=== PATIENT | male | born 1995 | race Caucasian/White ===

== ENCOUNTER 2021-01-03 09:35 | Inpatient (IN) | payer OTHER ==
[~2021-01-03] VITALS: Ht 177.8 cm; Wt 81.8 kg
[2021-01-03] MEDS ORDERED: CLON-598 PO (10:42)
[2021-01-03] MEDS ORDERED: VENL25TA47 PO (10:42)
[2021-01-03] MEDS ORDERED: MAGNESIUM HYDROXIDE SUSPENSION 30 ML UDCUP PO PRN (12:15)
[2021-01-03] MEDS ORDERED: ZOLPIDEM TARTRATE 5 MG TABLET PO PRN (12:15)
[2021-01-03] MEDS ORDERED: ACETAMINOPHEN 325 MG TABLET PO PRN (12:15)
[2021-01-03] MEDS ORDERED: ONDANSETRON HCL 4 MG/2 ML VIAL IVP PRN (12:15)
[2021-01-03 12:21] LABS: BASOPHILS % (AUTO) 0.3 % (0.0-2.0); EOSINOPHILS % (AUTO) 0.2 % (1.0-6.0); HEMATOCRIT 50.7 % (41-53); HEMOGLOBIN 16.6 g/dL (13.5-17.5); LYMPHOCYTES # (AUTO) 1.2 K/uL (1.0-4.8); LYMPHOCYTES % (AUTO) 13.6 % (22.0-44.0); MEAN CORPUSCULAR HEMOGLOBIN 30.4 pg (26.0-34.0); MEAN CORPUSCULAR HGB CONC 32.7 G/dL (31.0-37.0); MEAN CORPUSCULAR VOLUME 93 fL (80-100); MONOCYTES # (AUTO) 0.4 K/uL (0.1-1.0); MONOCYTES % (AUTO) 4.9 % (2.0-9.0); NEUTROPHILS # (AUTO) 7.4 K/uL (1.8-7.7); PLATELET COUNT (AUTO) 252 K/uL (150-450); RED BLOOD CELL COUNT(AUTO) 5.45 MIL/uL (4.50-5.90); RED CELL DISTRIBUTION WIDTH 15.3 % (11.5-14.5)
[2021-01-03] MEDS ORDERED: LORazepam 1 MG TABLET PO PRN (12:30)
[2021-01-03 12:32] LABS: ANION GAP 5 mmol/L (8-16); CARBON DIOXIDE 31 mmol/L (22-29); CHLORIDE 104 mmol/L (98-107); CREATININE 1.35 mg/dL (0.60-1.30); GLOMERULAR FILTR. RATE CALC > 60 mL/min (>60); GLUCOSE,RANDOM 107 mg/dL (70-110); POTASSIUM 5.3 mmol/L (3.5-5.1); SODIUM SERUM 140 mmol/L (136-145); UREA NITROGEN, BLOOD 20 mg/dL (7-18)
[2021-01-03 12:34] LABS: AMPHET/METH SCREEN,URINE NEGATIVE (NEGATIVE); BARBITURATE SCREEN, URINE NEGATIVE (NEGATIVE); BENZODIAZEPINES SCREEN,URINE NEGATIVE (NEGATIVE); CANNABINOID SCREEN,URINE POSITIVE (NEGATIVE); COCAINE SCREEN,URINE NEGATIVE (NEGATIVE); METHADONE SCREEN, URINE NEGATIVE (NEGATIVE); OPIATE SCREEN,URINE NEGATIVE (NEGATIVE)
[2021-01-03 12:37] LABS: ALANINE AMINOTRANSFERASE 93 U/L (12-78); ALKALINE PHOSPHATASE 86 U/L (46-116); ASPARTATE AMINOTRANSFERASE 56 U/L (15-37); BILIRUBIN,TOTAL 0.5 mg/dL (0.1-1.0); TOTAL PROTEIN, SERUM 7.7 g/dL (6.4-8.2)
[2021-01-03 12:46] LABS: PHENCYCLIDINE SCREEN,URINE NEGATIVE (NEGATIVE)
[2021-01-03 15:49] LABS: COVID AG,FIA SOURCE NASAL SWAB
[2021-01-03 16:35] VITALS: BP 125/82
[2021-01-03 19:35] VITALS: BP 128/69
[2021-01-03 23:35] VITALS: BP 114/65
[2021-01-04 04:26] VITALS: BP 112/64
[2021-01-04] MEDS: FAMOTIDINE 20 MG TABLET PO SCH (07:49)
[2021-01-04 07:58] VITALS: BP 119/70
[2021-01-04 15:27] VITALS: BP 123/63
[2021-01-04 19:22] VITALS: BP 135/85
[2021-01-05 05:30] VITALS: BP 130/76
[2021-01-05 06:50] LABS: BILIRUBIN,TOTAL 0.7 mg/dL (0.1-1.0); CALCIUM, TOTAL 9.7 mg/dL (8.8-10.5); CREATININE 1.5 mg/dL (0.60-1.30); POTASSIUM 4.8 mmol/L (3.5-5.1); TOTAL PROTEIN, SERUM 7.9 g/dL (6.4-8.2)
[2021-01-05 07:30] VITALS: BP 116/73
[2021-01-05] MEDS: FAMOTIDINE 20 MG TABLET PO SCH (08:00)
[2021-01-05] MEDS ORDERED: FAMO20 PO (09:13)
[2021-01-05] MEDS ORDERED: ACET-2247 PO (09:13)
[2021-01-05] MEDS ORDERED: MOM30 PO (09:14)
[2021-01-05 15:48] VITALS: BP 133/74
[2021-01-05 19:30] VITALS: BP 140/90
[2021-01-06 04:45] VITALS: BP 127/68
== END 2021-01-06 07:00 | DRG 897 ==
LOC: EMS 09:47 → 6S 12:15
PROVIDERS: ADMIT Internal Medicine; ATTEND Internal Medicine
DX: F13.130 Sedative, hypnotic or anxiolytic abuse with withdrawal, uncomplicated (principal); F41.1 Generalized anxiety disorder; F25.1 Schizoaffective disorder, depressive type; F12.90 Cannabis use, unspecified, uncomplicated; N28.9 Disorder of kidney and ureter, unspecified; Z20.822 Contact with and (suspected) exposure to COVID-19; F25.9 Schizoaffective disorder, unspecified; F31.9 Bipolar disorder, unspecified; R74.01 Elevation of levels of liver transaminase levels; Z79.899 Other long term (current) drug therapy
CPT/HCPCS: 80053; 85025; 99285; G0480

== ENCOUNTER 2021-10-06 23:31 | Inpatient (IN) | payer OTHER ==
[~2021-10-06] VITALS: Ht 154.9 cm; Wt 90.0 kg
[~2021-10-06 23:31] MED LIST: ACET-2247 PO; FAMO20 PO; MAGN-169 PO
[2021-10-07 00:41] LABS: BASOPHILS % (AUTO) 0.6 % (0.0-2.0); EOSINOPHILS % (AUTO) 1.7 % (1.0-6.0); HEMATOCRIT 47.4 % (41-53); HEMOGLOBIN 15.7 g/dL (13.5-17.5); LYMPHOCYTES # (AUTO) 2.4 K/uL (1.0-4.8); LYMPHOCYTES % (AUTO) 23.7 % (22.0-44.0); MEAN CORPUSCULAR HEMOGLOBIN 30.8 pg (26.0-34.0); MEAN CORPUSCULAR HGB CONC 33.1 G/dL (31.0-37.0); MEAN CORPUSCULAR VOLUME 93 fL (80-100); MONOCYTES # (AUTO) 0.8 K/uL (0.1-1.0); MONOCYTES % (AUTO) 7.5 % (2.0-9.0); NEUTROPHILS # (AUTO) 6.8 K/uL (1.8-7.7); NEUTROPHILS % (AUTO) 66.5 % (40.0-70.0); PLATELET COUNT (AUTO) 245 K/uL (150-450); RED BLOOD CELL COUNT(AUTO) 5.09 MIL/uL (4.50-5.90); RED CELL DISTRIBUTION WIDTH 15.6 % (11.5-14.5)
[2021-10-07] MEDS ORDERED: CLON-598 PO (00:45)
[2021-10-07] MEDS ORDERED: VENL-193 PO (00:45)
[2021-10-07 00:49] LABS: ANION GAP 4 mmol/L (8-16); CARBON DIOXIDE 32 mmol/L (22-29); CHLORIDE 103 mmol/L (98-107); CREATININE 1.59 mg/dL (0.60-1.30); GLUCOSE,RANDOM 81 mg/dL (70-110); SODIUM SERUM 139 mmol/L (136-145); UREA NITROGEN, BLOOD 20 mg/dL (7-18)
[2021-10-07 00:51] LABS: GLOMERULAR FILTR. RATE CALC 54 mL/min (>60)
[2021-10-07 00:55] LABS: ALANINE AMINOTRANSFERASE 42 U/L (12-78); ALBUMIN 3.8 g/dL (3.4-5.0); ALKALINE PHOSPHATASE 93 U/L (46-116); ASPARTATE AMINOTRANSFERASE 30 U/L (15-37); BILIRUBIN,TOTAL 0.4 mg/dL (0.1-1.0); TOTAL PROTEIN, SERUM 7.4 g/dL (6.4-8.2)
[2021-10-07 01:26] LABS: COVID AG,FIA SOURCE NASOPHARYNGEAL
[2021-10-07] MEDS ORDERED: ACETAMINOPHEN 325 MG TABLET PO PRN (02:00)
[2021-10-07] MEDS ORDERED: ONDANSETRON HCL 4 MG/2 ML VIAL IVP PRN (02:00)
[2021-10-07 03:09] VITALS: BP 102/53
[2021-10-07 07:01] VITALS: BP 100/60
[2021-10-07 08:44] LABS: APPEARANCE,URINE CLEAR (CLEAR); BILIRUBIN,URINE NEGATIVE (NEGATIVE); GLUCOSE, URINE (UA) NEGATIVE (NEGATIVE); KETONES,URINE NEGATIVE (NEGATIVE); LEUKOCYTE ESTERASE ,URINE NEGATIVE (NEGATIVE); NITRATE,URINE NEGATIVE (NEGATIVE); OCCULT BLOOD,URINE NEGATIVE (NEGATIVE); PROTEIN,URINE NEGATIVE (NEGATIVE); SPECIFIC GRAVITIY, URINE 1.024 (1.003-1.030); UROBILINOGEN,URINE <=1.0 mg/dL (<=1.0)
[2021-10-07 08:46] LABS: SODIUM,URINE RANDOM 124 mmol/l (20-110)
[2021-10-07 08:50] LABS: AMPHET/METH SCREEN,URINE NEGATIVE (NEGATIVE); BARBITURATE SCREEN, URINE NEGATIVE (NEGATIVE); BENZODIAZEPINES SCREEN,URINE POSITIVE (NEGATIVE); CANNABINOID SCREEN,URINE POSITIVE (NEGATIVE); COCAINE SCREEN,URINE NEGATIVE (NEGATIVE); METHADONE SCREEN, URINE NEGATIVE (NEGATIVE); OPIATE SCREEN,URINE NEGATIVE (NEGATIVE)
[2021-10-07 08:51] LABS: PHENCYCLIDINE SCREEN,URINE NEGATIVE (NEGATIVE)
[2021-10-07] MEDS: HEPARIN SODIUM,PORCINE 5,000 UNITS/ML VIAL SQ SCH ×3 (09:13→23:32)
[2021-10-07] MEDS: ClonazePAM 0.5 MG TABLET PO SCH ×2 (09:13→20:35)
[2021-10-07] MEDS ORDERED: VENL-68 PO (12:53)
[2021-10-07 15:21] VITALS: BP 112/60
[2021-10-07] MEDS: OLANZapine 5 MG TABLET PO SCH ×2 (16:36→20:35)
[2021-10-07] MEDS: FLUoxetine HCL 20 MG CAPSULE PO SCH (16:36)
[2021-10-07 19:22] VITALS: BP 112/56
[2021-10-07 23:16] VITALS: BP 110/69
[2021-10-08 04:14] VITALS: BP 103/56
[2021-10-08 07:11] LABS: BASOPHILS % (AUTO) 0.4 % (0.0-2.0); EOSINOPHILS % (AUTO) 2.5 % (1.0-6.0); HEMATOCRIT 49.7 % (41-53); HEMOGLOBIN 16.5 g/dL (13.5-17.5); LYMPHOCYTES # (AUTO) 2.7 K/uL (1.0-4.8); LYMPHOCYTES % (AUTO) 36.1 % (22.0-44.0); MEAN CORPUSCULAR HEMOGLOBIN 30.6 pg (26.0-34.0); MEAN CORPUSCULAR HGB CONC 33.1 G/dL (31.0-37.0); MEAN CORPUSCULAR VOLUME 92 fL (80-100); MONOCYTES # (AUTO) 0.6 K/uL (0.1-1.0); PLATELET COUNT (AUTO) 236 K/uL (150-450); RED BLOOD CELL COUNT(AUTO) 5.38 MIL/uL (4.50-5.90); RED CELL DISTRIBUTION WIDTH 15.3 % (11.5-14.5)
[2021-10-08 07:26] LABS: CALCIUM, TOTAL 9.2 mg/dL (8.8-10.5); CREATININE 1.52 mg/dL (0.60-1.30); POTASSIUM 4.5 mmol/L (3.5-5.1)
[2021-10-08 08:16] VITALS: BP 142/77
[2021-10-08] MEDS: ClonazePAM 0.5 MG TABLET PO SCH (08:39)
[2021-10-08] MEDS: OLANZapine 5 MG TABLET PO SCH ×2 (08:39→20:33)
[2021-10-08] MEDS: FLUoxetine HCL 20 MG CAPSULE PO SCH (08:39)
[2021-10-08] MEDS: HEPARIN SODIUM,PORCINE 5,000 UNITS/ML VIAL SQ SCH ×3 (08:39→23:48)
[2021-10-08 16:00] VITALS: BP 125/75
[2021-10-08 20:00] VITALS: BP 117/66
[2021-10-08] MEDS ORDERED: ClonazePAM 0.5 MG TABLET PO SCH (21:00)
[2021-10-09 04:00] VITALS: BP 106/61
[2021-10-09 07:35] VITALS: BP 107/55
[2021-10-09] MEDS: HEPARIN SODIUM,PORCINE 5,000 UNITS/ML VIAL SQ SCH (08:31)
[2021-10-09] MEDS: FLUoxetine HCL 20 MG CAPSULE PO SCH (08:32)
[2021-10-09] MEDS: OLANZapine 5 MG TABLET PO SCH (08:32)
[2021-10-09] MEDS ORDERED: OLAN5TAB52 PO (11:19)
[2021-10-09] MEDS ORDERED: FLUO20CA36 PO (11:19)
[2021-10-09] MEDS ORDERED: ACET-2247 PO (11:20)
== END 2021-10-09 12:13 | DRG 897 ==
LOC: EMS 23:32 → 6S 10-07 01:54
PROVIDERS: ADMIT Internal Medicine; ATTEND Internal Medicine
DX: F13.139 Sedative, hypnotic or anxiolytic abuse with withdrawal, unspecified (principal); N17.9 Acute kidney failure, unspecified; F32.A Depression, unspecified; F41.9 Anxiety disorder, unspecified; Z20.822 Contact with and (suspected) exposure to COVID-19; E66.9 Obesity, unspecified; Z79.899 Other long term (current) drug therapy; Z68.37 Body mass index [BMI] 37.0-37.9, adult
CPT/HCPCS: 80048; 80053; 81003; 82570; 83735; 84300; 85025; 99285; G0480; J1644